=== PATIENT | male | born 1945 | race Caucasian/White ===

== ENCOUNTER → 2018-11-29 | Outpatient (CLI) | payer MEDICARE, OTHER ==
[~2018-11-29] MED LIST: AMLO10TA82 PO; ASP81TEC PO; ASPI81TA16 PO; HCT25T PO; NAPR-248 PO; OMEG1CAP24 PO; OXYC-12 PO; SIMV40TA4 PO
== END ==
LOC: CARD 08:26
PROVIDERS: ATTEND Internal Medicine Interventional Cardiology
DX: I10 Essential (primary) hypertension (principal); E78.5 Hyperlipidemia, unspecified; R07.9 Chest pain, unspecified; R06.09 Other forms of dyspnea
CPT/HCPCS: 93306

== ENCOUNTER → 2019-01-24 | Outpatient (CLI) | payer MEDICARE, OTHER ==
[~2019-01-24] VITALS: Ht 170.2 cm; Wt 74.4 kg
[~2019-01-24] MED LIST changes: +CATHETER FLUSH 10 ML SYR IV PRN; +REGADENOSON 0.4 MG/5 ML SYR (LEXISCAN) IV ONE
[2019-01-24 09:14] VITALS: BP 122/75
[2019-01-24 09:16] VITALS: BP 149/69
--- NOTE | 2019-01-28 16:41 | Cardiology Stress Test Report ---
Stress Test Report Type of NM Stress Test: Test Type: LEXISCAN 0.4MG/5ML Date of Procedure/Referring: Date of Procedure: Jan 24, 2019 PCP Chay Kaufman MD Admitting Physician Donna Sanchez MD Indications: Hypertension Baseline Heart Rate: 55 Baseline Blood Pressure: Blood Pressure Systolic: 149 Blood Pressure Diastolic: 69 Baseline EKG: Baseline EKG: sinus rhythm Summary & Conclusion: Summary: The patient was brought to the stress lab after informed consent was taken. Stress test was performed according to the Lexiscan protocol. 0.4 mg of IV Lexiscan was given. Low-grade exercise was performed. Baseline EKG showed sinus rhythm at 55 BPM. Initial blood pressure was 122/75 mmHg. Maximum heart rate was 64 bpm and blood pressure 115/69 mmHg. Patient did not have any chest pain, arrhythmias or ST segment changes during the stress test. Occasional PVCs. 8.79 mCi of Myoview were given for rest imaging and 24.4 mCi of Myoview given for stress imaging. EF 58 percent. Normal wall motion. Fixed inferior defect. Conclusion: Pharmacological stress test was negative for ischemia. Normal LV function with no wall motion abnormalities. 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 Clinical correlation is recommended. Chay KAUFMAN MD Jan 28, 2019 4:41 pm
== END ==
LOC: CARD 07:47
PROVIDERS: ATTEND Internal Medicine Interventional Cardiology
DX: I10 Essential (primary) hypertension (principal); E78.2 Mixed hyperlipidemia
CPT/HCPCS: 78452; 93017

== ENCOUNTER → 2019-04-12 | Outpatient (CLI) | payer MEDICARE, OTHER ==
[~2019-04-12] MED LIST changes: +HOLD METFORMIN - RECEIVED CONTRAST 20 ML VIAL IV SCH; +IOHEXOL 350 MG/ML 100 ML (OMNIPAQUE 350) VIAL IV ONE; +NS 100 ML (IVPB) BAG IV ONE; -REGADENOSON 0.4 MG/5 ML SYR (LEXISCAN) IV ONE; +RT-ALBUTEROL SULF 2.5 MG/3 ML PRE-MIX VIAL INH ONE; +RT-ALBUTEROL SULF 2.5 MG/3 ML PRE-MIX VIAL ONE
[2019-04-12 14:32] LABS: BUN/CREATININE RATIO 22; CREATININE SERUM 1.15 MG/DL (0.60-1.30); GFR ESTIMATED > 60
--- NOTE | 2019-04-12 21:15 | Diagnostic Imaging Report ---
PROCEDURE: CT angiography of the chest with contrast. TECHNIQUE: Multiple contiguous axial images were obtained through the chest after uneventful bolus administration of intravenous contrast. 3D reconstructed CTA MIP acquisitions were also performed. Auto Exposure Controls were utilized during the CT exam to meet ALARA standards for radiation dose reduction. INDICATION: Dyspnea, pulmonary hypertension. FINDINGS: There are no findings of acute or chronic pulmonary arterial embolus. Pulmonary arterial tree calibers are normal with normal tapering pattern. The thoracic aorta is patent and nonaneurysmal. There is no pleural or pericardial effusion. Heart size and configuration are unremarkable. There are coronary arterial calcifications on the left. No suspicious lung mass or acute consolidating infiltrate. No chest effusion. The visualized upper abdomen shows cholelithiasis. IMPRESSION: Negative for PE. Gallstones noted. Coronary atherosclerosis. No aneurysm demonstrated. Dictated by: Dictated on workstation # [id number]
== END ==
LOC: RAD 13:53
PROVIDERS: ATTEND Nurse Practitioner Family
DX: I27.20 Pulmonary hypertension, unspecified (principal); G47.33 Obstructive sleep apnea (adult) (pediatric); K80.20 Calculus of gallbladder without cholecystitis without obstruction; I25.10 Atherosclerotic heart disease of native coronary artery without angina pectoris
CPT/HCPCS: 36415; 71275; 82565; 84520; 94060; 94726; 94729

== ENCOUNTER → 2021-02-08 | Outpatient (CLI) | payer MEDICARE, OTHER ==
[~2021-02-08] MED LIST changes: -CATHETER FLUSH 10 ML SYR IV PRN; -HOLD METFORMIN - RECEIVED CONTRAST 20 ML VIAL IV SCH; -IOHEXOL 350 MG/ML 100 ML (OMNIPAQUE 350) VIAL IV ONE; -NS 100 ML (IVPB) BAG IV ONE; -RT-ALBUTEROL SULF 2.5 MG/3 ML PRE-MIX VIAL INH ONE; -RT-ALBUTEROL SULF 2.5 MG/3 ML PRE-MIX VIAL ONE
--- NOTE | 2021-02-10 08:25 | Holter Monitor ---
HOLTER MONITOR DATE OF PROCEDURE: 02/08/2021. INDICATION: Premature ventricular complexes. PROCEDURE: A 24-hour Holter monitor was obtained for a total of 24 hours. The study quality is adequate. RESULTS: 1. Baseline sinus rhythm with an average heart rate of 61 bpm, ranging from 44- 105 bpm. 2. There were rare (17), isolated premature supraventricular complexes. 3. There were frequent (2457), isolated premature ventricular complexes and 199 ventricular couplets with a total ventricular ectopy burden of 3.4%. 4. There were no pauses exceeding 2 seconds in duration. 5. There were no entries in the patient diary. IMPRESSION: 1. This is a 24-hour Holter monitor report. 2. Baseline sinus rhythm with an average heart rate of 61 bpm, ranging from 41- 105 bpm with rare, isolated premature supraventricular complexes and frequent premature ventricular complexes as isolated and couplet beats with a total ventricular ectopy burden of 3.4%. 3. There were no entries in the patient diary. Certain portions of this document may have been dictated utilizing voice recognition technology. Inherent to this technology, typographical and grammatical errors may exist. As much as I am diligent to identify and correct these mistakes, some errors may remain in the document. BOB BEARDEN JR, MD Feb 10, 2021 08:25
== END ==
LOC: CARD 10:30
PROVIDERS: ATTEND Internal Medicine Cardiovascular Disease
DX: I51.7 Cardiomegaly (principal); I27.20 Pulmonary hypertension, unspecified; I49.3 Ventricular premature depolarization
CPT/HCPCS: 93225; 93226; 93306

== ENCOUNTER 2021-03-25 09:00 | Day surgery (SDC) | payer MEDICARE, OTHER ==
[~2021-03-25] VITALS: Ht 170.2 cm; Wt 75.7 kg
[2021-03-25] VITALS (9 sets, daily range): BP systolic 115–164; BP diastolic 69–86
--- NOTE | 2021-03-25 08:42 | Pre-Op Note & Conscious Sedat ---
Pre-Operative Progress Note H&P Reviewed The H&P was reviewed, patient examined and no changes noted. Date H&P Reviewed: Mar 25, 2021 Time H&P Reviewed: 08:41 Pre-Op Diagnosis: Pulmonary hypertension. Conscious Sedation Pre-Proced ASA Score 2 For ASA 3 and 4: Consider anesthesia and medical clearance. Also, for patients with a history of failed moderate sedation consider anesthesia. Airway Lungs Heart ASA score ASA 1: a normal healthy patient ASA 2: a patient with a mild systemic disease (mid diabetes, controlled hypertension, obesity ASA 3: a patient with a severe systemic disease that limits activity (angina, COPD, prior Myocardial infarction) ASA 4: a patient with an incapacitating disease that is a constant threat to life (CHF, renal failure) ASA 5: a moribund patient not expected to survive 24 hrs. (ruptured aneurysm) ASA 6: a declared brain- patient whose organs are being harvested. For emergent operations, add the letter E after the classification Mallampati Classification Grade 2 Sedation Plan Analgesia, Amnesia, Plan communicated to team members, Discussed options with patient/fam, Discussed risks with patient/fam The patient is an appropriate candidate to undergo the planned procedure, sedation, and anesthesia. The patient immediately re-assessed prior to indication. BOB BEARDEN JR, MD Mar 25, 2021 08:42
[~2021-03-25 09:00] MED LIST changes: +AMLO-251 PO; +ASPI-1238 PO; +CATHETER FLUSH 10 ML SYR IV PRN; +CELE-63 PO; +HEParin (CATH LAB) 2,000 ML IV ONE; +HYDR25TA4 PO; +LEVO50CA4 PO; +LIDOCAINE 1% INJ 20 ML 20 ML VIAL ONE; +LOSA50TA63 PO; +NS IV 1000 ML 1,000 ML IV ONE; +NS IV 1000 ML 1,000 ML ONE; +SIMV40TA25 PO
--- NOTE | 2021-03-25 10:13 | Cardiac Cath Report ---
CARDIAC CATHETERIZATION DATE OF PROCEDURE: 03/25/2021 INDICATION: Pulmonary hypertension. HISTORY: The patient is a 75 year old male with a previous history of pulmonary hypertension. He then had an echocardiogram in January 2021 that was not able to determine the pulmonary artery pressure. As such, he is now referred for further evaluation with a right heart catheterization for definitive evaluation of his pulmonary artery pressure. PROCEDURES PERFORMED: 1. Right heart catheterization with hemodynamic measurements. PROCEDURE DESCRIPTION: After informed consent and in the fasting state, right heart catheterization was performed through the right femoral vein utilizing a 7 [place] system by percutaneous approach. A standard 7 [place] Walhonding Sergey catheter was utilized for the procedure. Following the procedure, a 6/7 [place] Mynx closure device was used to close the venous access site. RESULTS: HEMODYNAMICS: The mean right atrial pressure was 8 mmHg. The right ventricular pressure was 29/3 mmHg. The pulmonary artery pressure was 39/10 mmHg with a mean of 18 mmHg. The mean pulmonary capillary wedge pressure was 12 mmHg. IMPRESSION: 1. Normal right heart pressures other than mildly elevated pulmonary capillary wedge pressure. No evidence of pulmonary hypertension. Certain portions of this document may have been dictated utilizing voice recognition technology. Inherent to this technology, typographical and grammatical errors may exist. As much as I am diligent to identify and correct these mistakes, some errors may remain in the document. BOB BEARDEN JR, MD Mar 25, 2021 10:13
[2021-03-25] MEDS ORDERED: NS IV 1000 ML 1,000 ML IV SCH (11:15)
[2021-03-25] MEDS ORDERED: PATIENT MAY USE OWN MEDS, ALL PO SCH (11:15)
== END 2021-03-25 12:37 | disposition home or self-care (01) ==
LOC: CATH 09:00 → SDC 10:16 → CATH 12:37
PROVIDERS: ATTEND Internal Medicine Cardiovascular Disease
DX: I27.20 Pulmonary hypertension, unspecified (principal); I49.3 Ventricular premature depolarization; I10 Essential (primary) hypertension; E78.2 Mixed hyperlipidemia; G47.33 Obstructive sleep apnea (adult) (pediatric); E03.9 Hypothyroidism, unspecified; I25.10 Atherosclerotic heart disease of native coronary artery without angina pectoris; E66.3 Overweight; Z68.26 Body mass index [BMI] 26.0-26.9, adult; Z79.899 Other long term (current) drug therapy; Z79.82 Long term (current) use of aspirin; Z79.890 Hormone replacement therapy; Z79.891 Long term (current) use of opiate analgesic
CPT/HCPCS: 87081; 93451; C1760; C1769; C1894